=== PATIENT | male | born 1960 | race Caucasian/White ===

== ENCOUNTER 2017-01-02 07:42 | Day surgery (SDC) | payer OTHER ==
--- NOTE | ~2017-01-02 | EGD ---
EGD REPORT [facility] [address] [id number] NAME: PATRICIA MANRIQUEZ : 60 STATUS : REG [facility]#: [id number] AGE: 56 ADM/REG DATE : 01/02/17 MR#: [id number] REPORT SERV DATE: 01/02/17 DICTATED BY: JACKIE NICOLE DATE: 01/02/17 REPORT STATUS : Draft [facility] DATE: 01/02/17 Pulmonology Patient Name: Patricia Manriquez Procedure Date: 01/02/2017 10:08 AM Date of : 1960 Attending MD: JAIR NCIOLE MD Procedure Date No Time: 01/02/2017 Procedure: EBUS/NAVIGATION BRONCHOSCOPY Indications: DENTON lung nodule Providers: JAIR NICOLE MD Referring MD: YOLIS GLEZ MD Medicines: Lidocaine 2% 20 mL Complications: No immediate complications Procedure: Pre-Anesthesia Assessment: - ASA Grade Assessment: III - A patient with severe systemic disease. - A History and Physical has been performed. Patient meds and allergies have been reviewed. The risks and benefits of the procedure and the sedation options and risks were discussed with the patient. All questions were answered and informed consent was obtained. Patient identification and proposed procedure were verified prior to the procedure by the physician and the nurse in the pre-procedure area in the procedure room. Mental Status Examination: normal. Respiratory Examination: clear to auscultation. CV Examination: normal and RRR, no murmurs, no S3 or S4. ASA Grade Assessment: III - A patient with severe systemic disease. After reviewing the risks and benefits, the patient was deemed in satisfactory condition to undergo the procedure. The anesthesia plan was to use general anesthesia. Immediately prior to administration of medications, the patient was re-assessed for adequacy to receive sedatives. The heart rate, respiratory rate, oxygen saturations, blood pressure, adequacy of pulmonary ventilation, and response to care were monitored throughout the procedure. The physical status of the patient was re-assessed after the procedure. After obtaining informed consent, the Bronchoscope was introduced through the mouth, via the endotracheal tube (the patient was intubated for the procedure) and advanced to the tracheobronchial tree. the BF [id number] was introduced through the mouth, via the endotracheal tube (the patient was intubated for the procedure) and advanced to the tracheobronchial tree. The procedure was accomplished without difficulty. The EGD REPORT [address] [address] NAME: PATRICIA MANRIQUEZ : 60 STATUS : REG [facility] [facility] PAT#: [id number] AGE: 56 ADM/REG DATE : 01/02/17 MR#: [id number] REPORT SERV DATE: 01/02/17 DICTATED BY: JACKIE NICOLE DATE: 01/02/17 REPORT STATUS : Draft TRANSCRIBED BY: [employer] DATE: 01/02/17 patient tolerated the procedure well. Findings: The endotracheal tube is in good position. The visualized portion of the trachea is of normal caliber. The odilia is sharp. The tracheobronchial tree was examined to at least the first subsegmental level. Bronchial mucosa and anatomy are normal; there are no endobronchial lesions, and no secretions. EBUS TBNA of lymph node level 11R x 4 passes for cytology EBUS TBNA of lymph node level 4R x 4passes for cytology EBUS TBNA of lymph node level 7 x 4passes for cytology EBUS TBNA of lymph node level 4L x 4 passes for cytology EBUS TBNA of lymph node level 11L x 4 passes for cytology Using SuperDimension Edge catheter 180, peripheral probe EBUS 17s, and fluoroscopy, I performed the following biopsies: DENTON nodule transbronchial needle aspirates x 10 passes for cytology DENTON nodule transbronchial brush biopsy x 1 pass for cytology DENTON nodule transbronchial forcep biopsies x 4 passes for histopathology DEBBI endobronchial brush biopsies were performed for the Percepta Bronchoalveolar lavage was performed in the left upper lobe of the lung and sent for cell count, cytology, bacterial culture, viral smears \\T\\ culture, and fungal and AFB analysis. 180 mL of fluid were instilled. 30 mL were returned. The return was blood-tinged and cellular. Impression: Rapid On-Site Evaluation (GAMAL): Preliminary cytology is "rare atypical cells, histiocytes" (final results are pending). Recommendation: - Await test results. - Await Bronchial [employer], Percepta Test - Follow up with Dr. Yolis Glez Attending Participation: I personally performed the entire procedure. JAIR NICOLE MD 01/02/2017 11:58 AM This report has been signed electronically. Number of Addenda: 0 Note Initiated On: 01/02/2017 10:08 AM [address] [id number]
[~2017-01-02 07:42] MED LIST: ACCUNEB INH; ADVAIR INH; ALBUTEROL0.083 % INH; ALBUTEROL0.63 MG/3 INH; ASAB PO; DIOV80 PO; DIOVAN HCT PO; FLONASE NAS; FOLIC PO; HYDROCHLOROT12.5 MG PO; LEVAQUIN750 MG PO; MIRAPEX125 PO; MUCINEX DM1 TAB OR; MULTIPLE VIT PO; NEXIUM40 PO; NICODERM C21 MG/241 TOP; PROAIRRESP INH; SPIRIVA INH; STERAPRED DS10 MG PO; VERAMYST27.5 MCG NAS; ZOCOR20 PO
[2017-01-02 08:07] LABS: BASOPHILS 0.9 %; BASOPHILS ABSOLUTE 0.06 10/3/uL (0.0-0.16); EOSINOPHILS 2.8 %; EOSINOPHILS ABSOLUTE 0.18 10/3/uL (0.0-0.53); HEMOGLOBIN 15.1 g/dL (13.6-17.8); IMMATURE GRANULOCYTES 0.2 %; IMMATURE GRANULOCYTES ABSOLUTE 0.01 10/3/uL (0.0-0.11); LYMPHOCYTES 28.7 %; LYMPHOCYTES ABSOLUTE 1.84 10/3/uL (0.67-4.30); MEAN CORPUS HGB CONC 34.8 g/dL (32.0-36.0); MEAN CORPUSCULAR HEMOGLOB 31.9 pg (26.0-34.0); MEAN CORPUSCULAR VOLUME 91.6 fL (80-100); MEAN PLATELET VOLUME 9.7 fL (9.2-13.0); MONOCYTES 7.8 %; NEUTROPHILS 59.6 %; NEUTROPHILS ABSOLUTE 3.83 10/3/uL (2.02-8.40); PLATELET COUNT 240 10/3/uL (150-400); RBC DISTRIBUTION WIDTH 14.2 % (12.0-16.0); RED CELL COUNT 4.74 10/6/uL (4.7-6.1); WHITE BLOOD CELLS 6.4 10/3/uL (4.5-10.5)
[2017-01-02 08:09] LABS: HEMATOCRIT 43.4 % (40.0-51.0); MANUAL DIFF NO %
[2017-01-02 08:10] LABS: PARTIAL THROMBO TIME 27.1 SEC (22.5-37.2); PROTIME (NOT ORD) 12.9 SEC (12.0-14.5)
[2017-01-02 08:15] LABS: CALCIUM, SERUM 8.7 MG/DL (8.5-10.4); CHLORIDE, SERUM 107 MMOL/L (96-112); CO2 (CARBON DIOXIDE) 31 MMOL/L (24-34); CREATININE 1.08 MG/DL (0.70-1.30); GFR AFRICAN AMERICAN 88 ML/MIN (>=60); GFR NON AFRICAN AMERICAN 76 ML/MIN (>=60); GLUCOSE, SERUM 112 MG/DL (60-99); POTASSIUM, SERUM 4.4 MMOL/L (3.5-5.3); SODIUM, SERUM 143 MMOL/L (135-148)
[2017-01-02 08:17] LABS: BUN (BLOOD UREA NITROGEN) 21 MG/DL (6-23)
[2017-01-02 14:57] LABS: BD FL SOURCE (NOT ORD) LUL BAL; BF TOTAL CELL CT (NOT ORD 496 /MM3; BODY FLUID RBC (NOT ORD) 16000 /MM3
[2017-01-02 15:37] LABS: BD FL LYMPH (NOT ORD) 26 %; BF BASO (NOT OF) 0 %; BF LARGE MONONUCLEAR 34 %; BODY FLUID EOS (NOT ORD) 0 %; BODY FLUID SEG (NOT ORD) 40 %
== END 2017-01-02 23:59 | disposition home or self-care (01) ==
LOC: DMU 07:42
PROVIDERS: Anesthesiology; Internal Medicine
PROC: 0BBG8ZX Excision of Left Upper Lung Lobe, Via Natural or Artificial Opening Endoscopic, Diagnostic (ICD-10-PCS; principal; 2017-01-02 09:30)
PROC: 07B74ZX Excision of Thorax Lymphatic, Percutaneous Endoscopic Approach, Diagnostic (ICD-10-PCS; 2017-01-02 09:30)
PROC: 0B9G8ZX Drainage of Left Upper Lung Lobe, Via Natural or Artificial Opening Endoscopic, Diagnostic (ICD-10-PCS; 2017-01-02 09:30)
PROC: 0BB38ZX Excision of Right Main Bronchus, Via Natural or Artificial Opening Endoscopic, Diagnostic (ICD-10-PCS; 2017-01-02 09:30)
DX: R91.1 Solitary pulmonary nodule (principal); I10 Essential (primary) hypertension; J30.9 Allergic rhinitis, unspecified; M19.90 Unspecified osteoarthritis, unspecified site; J45.909 Unspecified asthma, uncomplicated; J44.1 Chronic obstructive pulmonary disease with (acute) exacerbation; J06.9 Acute upper respiratory infection, unspecified; F17.210 Nicotine dependence, cigarettes, uncomplicated; E78.00 Pure hypercholesterolemia, unspecified; G47.33 Obstructive sleep apnea (adult) (pediatric); K21.9 Gastro-esophageal reflux disease without esophagitis; G25.81 Restless legs syndrome; Z79.899 Other long term (current) drug therapy; Z79.82 Long term (current) use of aspirin; Z91.89 Other specified personal risk factors, not elsewhere classified; Z99.89 Dependence on other enabling machines and devices; Z82.61 Family history of arthritis; Z82.5 Family history of asthma and other chronic lower respiratory diseases; Z82.49 Family history of ischemic heart disease and other diseases of the circulatory system; Z90.89 Acquired absence of other organs; Z98.890 Other specified postprocedural states
CPT/HCPCS: 71010; 80048; 85025; 85610; 85730; 87015; 87070; 87102; 87116; 87205; 88112; 88172; 88173; 88177; 88305; 88333; 89051; 93005; C1725; C1769; J2250; J2405; J2710; J3010